=== PATIENT | female | born 1995 | race Caucasian/White ===

== ENCOUNTER 2019-11-04 18:29 | Emergency (ER) | payer BC ==
[2019-11-04] MEDS ORDERED: MORPHINE 4 MG/ML SYR ONE (19:36)
[2019-11-04] MEDS ORDERED: ONDANSETRON 4 MG/2 ML VIAL ONE (19:36)
[2019-11-04] MEDS ORDERED: MAGNE/ALUM HYDROXD 30 ML UCUP ONE (19:36)
[2019-11-04] MEDS ORDERED: LIDOCAINE VISCOUS 2% SOLN 15 ML UDC ONE (19:37)
[2019-11-04] MEDS ORDERED: NA CHLORIDE 0.9% 1,000 ML ONE (19:37)
[2019-11-04] MEDS ORDERED: FAMOTIDINE 20 MG/2 ML VIAL IV ONE (19:37)
[2019-11-04 20:27] LABS: Absolute Lymphocytes (CBC) 2.3 K/uL (0.7-4.9); Basophils % 0.4 % (0-1.3); Hematocrit 41.1 % (36.0-45.0); Lymphocytes % 24.4 % (15.3-44.8); MPV 9.4 fL (7.6-11.3)
[2019-11-04 20:38] LABS: Urine Blood TRACE (NEG); Urine Glucose NEGATIVE (NEG); Urine Protein NEGATIVE (NEG); Urine pH 6.5 (5.0-7.0)
[2019-11-04 20:50] LABS: ALT/SGPT 13 U/L (12-78); AST/SGOT 17 U/L (15-37); Albumin 3.7 g/dL (3.4-5.0); Alkaline Phosphatase 54 U/L (45-117); BUN Blood Urea Nitrogen 7 mg/dL (7-18); Bicarbonate 25 mmol/L (21-32); Bilirubin Direct 0.1 mg/dL (0-0.2); Bilirubin Total 0.4 mg/dL (0.2-1.0); Glucose Level 83 mg/dL (74-106); Lipase 91 U/L (73-393); Potassium 3.5 mmol/L (3.5-5.1); Sodium Level 138 mmol/L (136-145)
--- NOTE | 2019-11-04 20:54 | ER ---
Nurse's Notes [facility] Name: Elza Swan Age: 24 yrs Sex: Female : 1995 Arrival Date: 11/04/2019 Time: 18:30 Bed 5 Private MD: Diagnosis: Upper abdominal pain, unspecified Presentation: 11/03 18:51 Chief complaint: Patient states: Abdominal pain x 2-3 weeks, decreased appetite, N/V, ph seen by GI in [place] and told that she needs an endoscopy. Coronavirus screen: The patient has NOT traveled to a country currently being monitored by the [facility] within the last 14 days. The patient has NOT had contact with any known and/or suspected case of coronavirus. Ebola Screen: No symptoms or risks identified at this time. Initial Sepsis Screen: Does the patient meet any 2 criteria? No. Patient's initial sepsis screen is negative. Does the patient have a suspected source of infection? No. Patient's initial sepsis screen is negative. Risk Assessment: Do you want to hurt yourself or someone else? Patient reports no desire to harm self or others. 18:51 Method Of Arrival: Ambulatory ph 18:51 Acuity: DIOR 3 ph 19:30 Onset of symptoms was September 2019. rr5 Historical: - Allergies: 18:55 No Known Allergies; ph - Home Meds: 18:55 Famotidine Oral [Active]; Zofran Oral [Active]; spironolactone Oral [Active]; ph - PMHx: 19:30 None; rr5 - PSHx: 18:56 laparoscopy; ph - Immunization history:: Adult Immunizations unknown. - Social history:: Smoking status: Patient denies any tobacco usage or history of. Patient/guardian denies using alcohol, street drugs, The patient lives with family. - Family history:: not pertinent. Screenin:10 Abuse screen: Denies threats or abuse. Denies injuries from another. Nutritional rr5 screening: No deficits noted. Tuberculosis screening: No symptoms or risk factors identified. Fall Risk IV access (20 points). Total Parks Fall Scale indicates No Risk (0-24 pts). Assessment: 19:10 General: Appears in no apparent distress. uncomfortable, Behavior is calm, cooperative, rr5 appropriate for age. 19:10 Pain: Complains of pain in abdomen Pain does not radiate. Pain currently is 7 out of 10 rr5 on a pain scale. Quality of pain is described as aching, Pain began gradually, Is intermittent. Neuro: Level of Consciousness is awake, alert, obeys commands, Oriented to person, place, time, situation, Appropriate for age. Cardiovascular: Capillary refill < 3 seconds Patient's skin is warm and dry. Respiratory: Airway is patent Respiratory effort is even, unlabored, Respiratory pattern is regular, symmetrical. GI: Abdomen is flat, Bowel sounds present X 4 quads. Abdomen is tender to palpation Reports lower abdominal pain, upper abdominal pain, nausea, vomiting. : No signs and/or symptoms were reported regarding the genitourinary system. EENT: No signs and/or symptoms were reported regarding the EENT system. Derm: Skin is intact, is healthy with good turgor, Skin temperature is warm. Musculoskeletal: Circulation, motion, and sensation intact. Capillary refill < 3 seconds. 20:10 Reassessment: Patient appears in no apparent distress at this time. Patient is alert, rr5 oriented x 3, equal unlabored respirations, skin warm/dry/pink. awaiting for results. Patient states symptoms have improved. 20:10 Pain: Pain currently is 6 out of 10 on a pain scale. rr5 21:20 Reassessment: Patient appears in no apparent distress at this time. Patient is alert, rr5 oriented x 3, equal unlabored respirations, skin warm/dry/pink. discharge instruction given and explained without complaints made. Patient states feeling better. Patient states symptoms have improved. Vital Signs: 18:51 BP 146 / 97; Pulse 86; Resp 18; Temp 98.9; Pulse Ox 97% on R/A; Weight 54.43 kg; Height ph 5 ft. 1 in. (154.94 cm); Pain 7/10; 20:10 BP 114 / 73; Pulse 80; Resp 16; Pulse Ox 99% on R/A; rr5 20:15 BP 114 / 73; Pulse 77; Resp 16; Pulse Ox 100% on R/A; rv 21:25 BP 107 / 73; Pulse 75; Resp 19; Temp 98.2; Pulse Ox 100% ; rr5 18:51 Body Mass Index 22.67 (54.43 kg, 154.94 cm) ph ED Course: 18:30 Patient arrived in ED. ag5 18:54 Triage completed. ph 18:56 Arm band placed on Patient placed in an exam room. ph 19:10 Patient has correct armband on for positive identification. Placed in gown. Bed in low rr5 position. Call light in reach. Pulse ox on. NIBP on. 19:13 Jovan Mast MD is Attending Physician. ma2 19:29 Van Mojica RN is Primary Nurse. rr5 19:45 Inserted saline lock: 20 gauge in right antecubital area, using aseptic technique. rr5 Blood collected. 21:26 No provider procedures requiring assistance completed. IV discontinued, intact, rr5 bleeding controlled, No redness/swelling at site. Pressure dressing applied. Administered Medications: 19:30 Drug: GI Cocktail without - (Maalox Suspension 30 ml, Lidocaine Liquid 2 % 15 rr5 ml) Route: PO; 20:30 Follow up: Response: No adverse reaction; Pain is decreased rr5 19:45 Drug: NS 0.9% 1000 ml Route: IV; Rate: 1 bolus; Site: right antecubital; rr5 20:49 Follow up: Response: No adverse reaction; IV Status: Completed infusion; IV Intake: rr5 1000ml 19:45 Drug: Zofran (Ondansetron) 4 mg Route: IVP; Site: right antecubital; rr5 20:40 Follow up: Response: No adverse reaction rr5 19:47 Drug: Pepcid 20 mg Route: IVP; Site: right antecubital; rr5 20:40 Follow up: Response: No adverse reaction; Pain is decreased rr5 19:51 Drug: morphine 4 mg {Note: rass 0.} Route: IVP; Site: right antecubital; rr5 20:50 Follow up: Response: No adverse reaction; Pain is decreased; RASS: Alert and Calm (0) rr5 Intake: 20:49 IV: 1000ml; Total: 1000ml. rr5 Outcome: 20:53 Discharge ordered by . ma2 21:26 Discharged to home ambulatory. rr5 21:26 Condition: stable 21:26 Discharge instructions given to patient, Instructed on discharge instructions, follow up and referral plans. medication usage, Demonstrated understanding of instructions, follow-up care, medications. 21:32 Patient left the ED. rr5 Signatures: Carlita Franklin RN RN Kezia MD JUSTIN Aldana ma2 Dayo Landrum RN RN rv Van Mojica RN RN rr5 Esther, Maria Guadalupe 5
--- NOTE | 2019-11-04 20:54 | EDPHYS ---
Physician Documentation [facility] Name: Elza Swan Age: 24 yrs Sex: Female : 1995 Arrival Date: 11/04/2019 Time: 18:30 Bed 5 Private MD: ED Physician Jovan Mast HPI: 11/03 20:01 This 24 yrs old Female presents to ER via Ambulatory with complaints of ma2 Abdominal Pain, Nausea. 20:01 The patient presents to the emergency department with nausea, vomiting, diarrhea. ma2 Onset: The symptoms/episode began/occurred gradually, 1 day(s) ago. Possible causes: unknown. Associated signs and symptoms: Pertinent negatives: anorexia, constipation, dysuria, flatulence. Severity of symptoms: At their worst the symptoms were mild in the emergency department the symptoms are unchanged. The patient has experienced similar episodes in the past. Historical: - Allergies: 18:55 No Known Allergies; ph - Home Meds: 18:55 Famotidine Oral [Active]; Zofran Oral [Active]; spironolactone Oral [Active]; ph - PMHx: 19:30 None; rr5 - PSHx: 18:56 laparoscopy; ph - Immunization history:: Adult Immunizations unknown. - Social history:: Smoking status: Patient denies any tobacco usage or history of. Patient/guardian denies using alcohol, street drugs, The patient lives with family. - Family history:: not pertinent. ROS: 20:01 Constitutional: Negative for fever, chills, and weight loss. ma2 20:01 All other systems are negative. Exam: 20:01 Constitutional: This is a well developed, well nourished patient who is awake, alert, ma2 and in no acute distress. Head/Face: Normocephalic, atraumatic. Eyes: Pupils equal round and reactive to light, extra-ocular motions intact. Lids and lashes normal. Conjunctiva and sclera are non-icteric and not injected. Cornea within normal limits. Periorbital areas with no swelling, redness, or edema. ENT: Nares patent. No nasal discharge, no septal abnormalities noted. Tympanic membranes are normal and external auditory canals are clear. Oropharynx with no redness, swelling, or masses, exudates, or evidence of obstruction, uvula midline. Mucous membranes moist. Neck: Trachea midline, no thyromegaly or masses palpated, and no cervical lymphadenopathy. Supple, full range of motion without nuchal rigidity, or vertebral point tenderness. No Meningismus. Chest/axilla: Normal chest wall appearance and motion. Nontender with no deformity. No lesions are appreciated. Cardiovascular: Regular rate and rhythm with a normal S1 and S2. No gallops, murmurs, or rubs. Normal PMI, no JVD. No pulse deficits. Respiratory: Lungs have equal breath sounds bilaterally, clear to auscultation and percussion. No rales, rhonchi or wheezes noted. No increased work of breathing, no retractions or nasal flaring. Abdomen/GI: Soft, non-tender, with normal bowel sounds. No distension or tympany. No guarding or rebound. No evidence of tenderness throughout. Back: No spinal tenderness. No costovertebral tenderness. Full range of motion. Skin: Warm, dry with normal turgor. Normal color with no rashes, no lesions, and no evidence of cellulitis. MS/ Extremity: Pulses equal, no cyanosis. Neurovascular intact. Full, normal range of motion. Neuro: Awake and alert, GCS 15, oriented to person, place, time, and situation. Cranial nerves II-XII grossly intact. Motor strength 5/5 in all extremities. Sensory grossly intact. Cerebellar exam normal. Normal gait. Vital Signs: 18:51 BP 146 / 97; Pulse 86; Resp 18; Temp 98.9; Pulse Ox 97% on R/A; Weight 54.43 kg; Height ph 5 ft. 1 in. (154.94 cm); Pain 7/10; 20:10 BP 114 / 73; Pulse 80; Resp 16; Pulse Ox 99% on R/A; rr5 20:15 BP 114 / 73; Pulse 77; Resp 16; Pulse Ox 100% on R/A; rv 21:25 BP 107 / 73; Pulse 75; Resp 19; Temp 98.2; Pulse Ox 100% ; rr5 18:51 Body Mass Index 22.67 (54.43 kg, 154.94 cm) ph MDM: 19:13 Patient medically screened. ma2 20:01 Differential diagnosis: gastritis, pancreatitis, viral gastroenteritis, ma2 gastroenteritis. Data reviewed: vital signs, nurses notes. Counseling: I had a detailed discussion with the patient and/or guardian regarding: the historical points, exam findings, and any diagnostic results supporting the discharge/admit diagnosis, the presence of at least one elevated blood pressure reading (>120/80) during this emergency department visit, the need for outpatient follow up. Response to treatment: the patient's symptoms have markedly improved after treatment. 11/03 19:17 Order name: Basic Metabolic Panel; Complete Time: 20:52 ma2 11/03 19:17 Order name: CBC with Diff; Complete Time: 20:36 ma2 11/03 19:17 Order name: Creatinine for Radiology; Complete Time: 20:52 ma2 11/03 19:17 Order name: Hepatic Function; Complete Time: 20:52 ma2 11/03 19:17 Order name: Lipase; Complete Time: 20:52 ma2 11/03 19:47 Order name: Urine Dipstick--Ancillary (enter results); Complete Time: 20:52 ar5 11/03 19:17 Order name: IV Saline Lock; Complete Time: 19:56 ma2 11/03 19:17 Order name: Labs collected and sent; Complete Time: 19:56 ma2 11/03 19:47 Order name: Urine --Ancillary (enter results); Complete Time: 20:52 ar5 11/03 19:17 Order name: Urine Dipstick-Ancillary (obtain specimen); Complete Time: 19:43 ma2 Administered Medications: 19:30 Drug: GI Cocktail without - (Maalox Suspension 30 ml, Lidocaine Liquid 2 % 15 rr5 ml) Route: PO; 20:30 Follow up: Response: No adverse reaction; Pain is decreased rr5 19:45 Drug: NS 0.9% 1000 ml Route: IV; Rate: 1 bolus; Site: right antecubital; rr5 20:49 Follow up: Response: No adverse reaction; IV Status: Completed infusion; IV Intake: rr5 1000ml 19:45 Drug: Zofran (Ondansetron) 4 mg Route: IVP; Site: right antecubital; rr5 20:40 Follow up: Response: No adverse reaction rr5 19:47 Drug: Pepcid 20 mg Route: IVP; Site: right antecubital; rr5 20:40 Follow up: Response: No adverse reaction; Pain is decreased rr5 19:51 Drug: morphine 4 mg {Note: rass 0.} Route: IVP; Site: right antecubital; rr5 20:50 Follow up: Response: No adverse reaction; Pain is decreased; RASS: Alert and Calm (0) rr5 Disposition: 11/04/19 20:53 Discharged to Home. Impression: Upper abdominal pain, unspecified. - Condition is Stable. - Discharge Instructions: Abdominal Pain, Adult. - Prescriptions for Ibuprofen 800 mg Oral Tablet - take 1 tablet by ORAL route every 12 hours As needed take with food; 20 tablet. Zofran 4 mg Oral Tablet - take 1 tablet by ORAL route every 12 hours As needed; 20 tablet. - Medication Reconciliation Form, Thank You Letter, Antibiotic Education, Prescription Opioid Use form. - Follow up: Private Physician; When: Tomorrow; Reason: Continuance of care. Signatures: Dispatcher [employer] Carlita Joyce RN RN Jovan Mast MD MD ma2 Van Mojica RN RN rr5 Corrections: (The following items were deleted from the chart) 21:32 20:53 11/04/2019 20:53 Discharged to Home. Impression: Upper abdominal pain, rr5 unspecified. Condition is Stable. Prescriptions for Ibuprofen 800 mg Oral Tablet - take 1 tablet by ORAL route every 12 hours As needed take with food; 20 tablet, Zofran 4 mg Oral Tablet - take 1 tablet by ORAL route every 12 hours As needed; 20 tablet. and Forms are Medication Reconciliation Form, Thank You Letter, Antibiotic Education, Prescription Opioid Use. Follow up: Private Physician; When: Tomorrow; Reason: Continuance of care. mora
[2019-11-04 21:47] VITALS: O2SAT 100
[2019-11-04 21:48] VITALS: BP 107/73; TEMP 98.2
== END 2019-11-04 21:32 | disposition home or self-care (01) ==
LOC: ER 18:29
DX: R10.10 Upper abdominal pain, unspecified (principal)
CPT/HCPCS: 96361; 85025; 80048; 36415; 81025; 80076; 81003; 83690; 96375; 96374; 99284; J7030; J2405